=== PATIENT | male | born 1955 | race African-American/Black ===

== ENCOUNTER 2017-10-02 10:00 | Emergency (ER) | payer OTHER, SELFPAY ==
--- NOTE | 2017-10-02 10:22 | EDM.PDOC ---
ED HPI GENERAL MEDICAL PROBLEM - General Chief Complaint: Lower Extremity Injury/Pain Stated Complaint: R ANKLE PAIN Time Seen by Provider: 10/02/17 10:03 Source of Information: Reports: Patient History Limitations: Reports: No Limitations - History of Present Illness INITIAL COMMENTS - FREE TEXT/NARRATIVE: HISTORY AND PHYSICAL: History of present illness: Patient is a 62-year-old male who presents to the emergency room today with complaints of right lateral ankle pain 1 month. He states that approximately one month ago he had "rolled" his ankle and since that time has had increased pain with weightbearing and ambulation. This rolling of the ankle did not result in a fall or hitting his head. Initially he did tell his employer but was unable to follow-up for evaluation of this injury until today. He denies any numbness or tingling to the affected extremity. He is ambulatory and able to bear weight although it does cause some pain. Denies any previous surgeries or injuries to this extremity. Review of systems: As per history of present illness and below otherwise all systems reviewed and negative. Past medical history: As per history of present illness and as reviewed below otherwise noncontributory. Surgical history: As per history of present illness and as reviewed below otherwise noncontributory. Social history: No reported history of drug or alcohol abuse. Family history: As per history of present illness and as reviewed below otherwise noncontributory. Physical exam: General: Nontoxic-appearing 62-year-old -[place] Islander male. Alert and oriented. Well-developed and well-nourished. HEENT: Atraumatic, normocephalic, pupils reactive, negative for conjunctival pallor or scleral icterus, mucous membranes moist, throat clear, neck supple, nontender, trachea midline. Lungs: Clear to auscultation, breath sounds equal bilaterally, chest nontender. Heart: S1S2, regular rate and rhythm. Abdomen: Soft, nondistended, nontender. Pelvis: Stable nontender. Genitourinary: Deferred. Rectal: Deferred. Extremities/Skin: Moves all extremities per self. Ambulatory without difficulty. No achillies tendon involvement. Mild tenderness with palpation over the lateral malleolus. There is no appreciated soft tissue swelling or redness. Good flexion and extension of the affected extremity. Strong pedal pulse. Skin is warm, intact, dry. He is negative for cords or calf pain. Neurovascular unremarkable. Neuro: Awake, alert, oriented. Cranial nerves II through XII unremarkable. Cerebellum unremarkable. Motor and sensory unremarkable throughout. Exam nonfocal. Diagnostics: X-ray right ankle Therapeutics: Stirrup splint Impression: Right ankle pain Plan: 1. Please use the stirrup splint and crutches for comfort. Rest, ice, elevate the affected extremity. 2. May use the diclofenac as needed for pain. This is an anti-inflammatory medications so do not take any additional NSAIDs such as Aleve or ibuprofen. 3. Follow up with an orthopedic provider if you continue to have pain. Return to the ED as needed and as discussed. Definitive disposition and diagnosis as appropriate pending reevaluation and review of above. Duration: Week(s): Location: Reports: Lower Extremity, Right Right Ankle Pain Score (Numeric/FACES): 8 - Related Data Allergies Allergy/AdvReac Type Severity Reaction Status Date / Time No Known Allergies Allergy Verified 04/27/14 12:23 Home Meds: Home Meds Diclofenac Sodium [Voltaren] 50 mg PO BID PRN 10 Days #20 tab.ec 10/02/17 [Rx] Review of Systems - Review of Systems Review Of Systems: ROS reveals no pertinent complaints other than HPI. ED EXAM, GENERAL - Physical Exam Exam: See Below (See dictation) Course - Vital Signs Last Recorded V/S: Last Vital Signs Temp 98.1 F 10/02/17 10:15 Pulse 90 10/02/17 10:15 Resp 18 10/02/17 10:15 BP 136/75 10/02/17 10:15 Pulse Ox 98 10/02/17 10:15 - Orders/Labs/Meds Orders: Active Orders 24 hr Category Date Time Status Ankle Min 3V Rt [CR] Stat Exams 10/02/17 10:26 Taken DME for Discharge [COMM] Stat Oth 10/02/17 12:10 Ordered Departure - Departure Time of Disposition: 10:32 Disposition: Home, Self-Care 01 Clinical Impression: Ankle pain, right Qualifiers: Chronicity: acute Qualified Code(s): M25.571 - Pain in right ankle and joints of right foot - Discharge Information Prescriptions: Diclofenac Sodium [Voltaren] 50 mg PO BID PRN 10 Days #20 tab.ec PRN Reason: Pain Instructions: Ankle Pain Referrals: PCP,None [Primary Care Provider] - Forms: ED Department Discharge Additional Instructions: My general discharge The following information is given to patients seen in the emergency department who are being discharged to home. This information is to outline your options for follow-up care. We provide all patients seen in our emergency department with a follow-up referral. The need for follow-up, as well as the timing and circumstances, are variable depending upon the specifics of your emergency department visit. If you don't have a primary care physician on staff, we will provide you with a referral. We always advise you to contact your personal physician following an emergency department visit to inform them of the circumstance of the visit and for follow-up with them and/or the need for any referrals to a consulting specialist. The emergency department will also refer you to a specialist when appropriate. This referral assures that you have the opportunity for follow-up care with a specialist. All of these measure are taken in an effort to provide you with optimal care, which includes your follow-up. Under all circumstances we always encourage you to contact your private physician who remains a resource for coordinating your care. When calling for follow-up care, please make the office aware that this follow-up is from your recent emergency room visit. If for any reason you are refused follow-up, please contact the [facility] Emergency Department at and asked to speak to the emergency department charge nurse. [facility] [address], [address] [place] [address] 1. Please use the stirrup splint and crutches for comfort. Rest, ice, elevate the affected extremity. 2. May use the diclofenac as needed for pain (Sent electronically to [facility]). This is an anti-inflammatory medications so do not take any additional NSAIDs such as Aleve or ibuprofen. 3. Follow up with an orthopedic provider if you continue to have pain. Return to the ED as needed and as discussed. - My Orders Last 24 Hours: My Active Orders 10/02/17 10:26 Ankle Min 3V Rt [CR] Stat 10/02/17 12:10 DME for Discharge [COMM] Stat - Assessment/Plan Last 24 Hours: My Active Orders 10/02/17 10:26 Ankle Min 3V Rt [CR] Stat 10/02/17 12:10 DME for Discharge [COMM] Stat
--- NOTE | 2017-10-02 13:19 | CR ---
EXAMINATION: Right ankle HISTORY: Pain COMPARISON: None TECHNIQUE: 3 views FINDINGS/IMPRESSION: There is no acute osseous abnormality, dislocation, or fracture. Mild soft tissu e swelling overlying the lateral malleolus. Subtle curvilinear calcification over the posterior tibia l plafond, possibly periosteal reaction or an old injury.
== END 2017-10-02 12:35 | disposition home or self-care (01) ==
LOC: MW.ED 10:00
DX: M25.571 Pain in right ankle and joints of right foot (principal)
CPT/HCPCS: 73610-26-RT; 73610-RT; 99283

== ENCOUNTER 2018-09-11 13:04 | Emergency (ER) | payer BC, SELFPAY ==
--- NOTE | 2018-09-11 13:45 | EDM.PDOC ---
ED HPI GENERAL MEDICAL PROBLEM - General Chief Complaint: ENT Problem Stated Complaint: RUNNING NOSE Time Seen by Provider: 09/11/18 13:18 Source of Information: Reports: Patient History Limitations: Reports: No Limitations - History of Present Illness INITIAL COMMENTS - FREE TEXT/NARRATIVE: HISTORY AND PHYSICAL: History of present illness: Patient is a 63-year-old male who presents to the emergency room with complaints of rhinitis He says that over the past several weeks he has had a continuous runny nose which he describes as "constant". Approx 1 week ago he finished an antibiotic treating a sinus and ear infection. He states that this did not help with his nasal drainage. He denies any history of seasonal allergies although states he never had this problem prior to coming to [place]. He denies any fever, chills, chest pain, shortness of breath or cough. Denies any GI or symptoms. Review of systems: As per history of present illness and below otherwise all systems reviewed and negative. Past medical history: As per history of present illness and as reviewed below otherwise noncontributory. Surgical history: As per history of present illness and as reviewed below otherwise noncontributory. Social history: See social history for further information Family history: As per history of present illness and as reviewed below otherwise noncontributory. Physical exam: General: Well-developed and well-nourished 63-year-old -Finnish male. Alert and oriented. Nontoxic appearing and in no acute distress. HEENT: Atraumatic, normocephalic, pupils equal and reactive bilaterally, negative for conjunctival pallor or scleral icterus, mucous membranes moist, TMs normal bilaterally, throat clear, neck supple, nontender, trachea midline. No sinus tenderness with palpation. No drooling or trismus noted. No meningeal signs. No hot potato voice noted. Lungs: Clear to auscultation, breath sounds equal bilaterally, chest nontender. Heart: S1S2, regular rate and rhythm without overt murmur Abdomen: Soft, nondistended, nontender. Negative for masses or hepatosplenomegaly. Negative for costovertebral tenderness. Pelvis: Stable nontender. Genitourinary: Deferred. Rectal: Deferred. Skin: Intact, warm, dry. No lesions or rashes noted. Extremities: Atraumatic, negative for cords or calf pain. Neurovascular unremarkable. Neuro: Awake, alert, oriented. Cranial nerves II through XII unremarkable. Cerebellum unremarkable. Motor and sensory unremarkable throughout. Exam nonfocal. Notes: Discussed using [id number] allergy medications for his rhinitis. There is a language barrier and he states that he does not understand. We'll give him a prescription for Singulair for his symptoms. He does voice understanding and is agreeable to plan of care. Did provide him with phone numbers to establish care with a primary care provider. He is agreeable denies any further questions. Diagnostics: None Therapeutics: None Prescription: Singulair Impression: Allergic rhinitis Plan: 1. Take the Singulair once daily for your allergic rhinitis (runny nose) 2. Please establish care with a primary care provider, please be reevaluated with in the next week. 3. Return to the ED as needed and as discussed. Definitive disposition and diagnosis as appropriate pending reevaluation and review of above. Duration: Chronic Location: Reports: Face - Related Data Allergies Allergy/AdvReac Type Severity Reaction Status Date / Time No Known Allergies Allergy Verified 09/11/18 13:21 Home Meds: Home Meds . [No Known Home Meds] 09/11/18 [History] Past Medical History - Past Health History Medical/Surgical History: Denies Medical/Surgical History Social & Family History - Family History Family Medical History: Noncontributory - Tobacco Use Smoking Status *Q: Never Smoker - Caffeine Use Caffeine Use: Reports: None - Recreational Drug Use Recreational Drug Use: No ED ROS ENT - Review of Systems Review Of Systems: ROS reveals no pertinent complaints other than HPI. ED EXAM, ENT - Physical Exam Exam: See Below (See dictation) Course - Vital Signs Last Recorded V/S: Last Vital Signs Temp 98.0 F 09/11/18 13:18 Pulse 85 09/11/18 13:18 Resp 18 09/11/18 13:18 BP 132/78 09/11/18 13:18 Pulse Ox 98 09/11/18 13:18 Departure - Departure Time of Disposition: 13:44 Disposition: Home, Self-Care 01 Clinical Impression: Allergic rhinitis Qualifiers: Allergic rhinitis trigger: unspecified Allergic rhinitis seasonality: unspecified Qualified Code(s): J30.9 - Allergic rhinitis, unspecified - Discharge Information Instructions: Allergic Rhinitis, Adult Referrals: PCP,None [Primary Care Provider] - Forms: ED Department Discharge Additional Instructions: The following information is given to patients seen in the emergency department who are being discharged to home. This information is to outline your options for follow-up care. We provide all patients seen in our emergency department with a follow-up referral. The need for follow-up, as well as the timing and circumstances, are variable depending upon the specifics of your emergency department visit. If you don't have a primary care physician on staff, we will provide you with a referral. We always advise you to contact your personal physician following an emergency department visit to inform them of the circumstance of the visit and for follow-up with them and/or the need for any referrals to a consulting specialist. The emergency department will also refer you to a specialist when appropriate. This referral assures that you have the opportunity for follow-up care with a specialist. All of these measure are taken in an effort to provide you with optimal care, which includes your follow-up. Under all circumstances we always encourage you to contact your private physician who remains a resource for coordinating your care. When calling for follow-up care, please make the office aware that this follow-up is from your recent emergency room visit. If for any reason you are refused follow-up, please contact the [facility] Emergency Department at and asked to speak to the emergency department charge nurse. [facility] [address] [place] [address] [place] [address] 1. Take the Singulair once daily for your allergic rhinitis (runny nose) 2. Please establish care with a primary care provider, please be reevaluated with in the next week. 3. Return to the ED as needed and as discussed.
== END 2018-09-11 14:09 | disposition home or self-care (01) ==
LOC: MW.ED 13:04
DX: J30.9 Allergic rhinitis, unspecified (principal)
CPT/HCPCS: 99283

== ENCOUNTER 2019-11-01 18:34 | Emergency (ER) | payer OTHER, SELFPAY ==
[2019-11-01] MEDS ORDERED: Iopamidol 755 Mg/ML 100 ML Bottle IVPUSH STA (18:40)
[2019-11-01] MEDS ORDERED: HYDROmorphone 1 MG/ML Syringe IVPUSH ONE (19:22)
--- NOTE | 2019-11-01 19:36 | CT ---
CT abdomen and pelvis Technique: Multiple axial sections were obtained from above the dome of the diaphragm inferiorly through the pubic symphysis. Intravenous contrast was utilized. No oral contrast has been given. Findings: Visualized lung bases show nothing acute. Liver shows no focal parenchymal abnormality. Spleen appears within normal limits. Adrenal glands show no nodule. Pancreas appears within normal limits. Gallbladder contains no calcified gallstones. Kidneys show symmetric contrast enhancement. Small cyst is noted within the mid right kidney measuring 1 cm in size. No additional abnormality is seen within the kidneys. Aorta shows no aneurysm. Atherosclerotic calcification is seen within the iliac arteries. No retroperitoneal adenopathy is seen. No pelvic mass or adenopathy is seen. No free fluid or inflammatory change is seen. Bone window settings were reviewed which shows degenerative change within the apophyseal joints of L3-L4 and L4-L5 and lesser at L5-S1. Disc space narrowing and vacuum phenomena is seen within the L5-S1 disc. No acute osseous finding is seen. Impression: 1. Nonacute findings as described above. 2. Nothing acute is seen on CT study of the abdomen and pelvis. Diagnostic code #2 Study was dictated in MDT
--- NOTE | 2019-11-01 19:36 | CT ---
CT cervical spine Technique: Multiple axial sections were obtained from above C1 inferiorly to the top of T3. Reconstructed coronal and sagittal images were obtained. Findings: Retention cyst is noted within the inferior right maxillary sinus measuring about 2.1 cm. Nodular mucosal thickening or additional broad-based retention cyst is seen within the left maxillary sinus. Mild degenerative change is noted between the dens and anterior arch C1. Mild disc space narrowing noted at C3-C4. Moderate disc space narrowing is noted at C5-C6 and mild disc space narrowing is noted at C6-C7. Detached osteophytes are noted anteriorly at C4-C5 and C6-C7. Anterior osteophytes are noted at C5-C6. Posterior spurring is noted off the C4, C5 and C6. No bony central or neural foraminal stenosis is seen. No fracture or abnormal subluxation is seen. Impression: 1. Degenerative change as noted above. 2. No acute abnormality is appreciated on CT study of the cervical spine. 3. Sinus findings which are likely chronic as noted above. Diagnostic code #2 Study was dictated in MDT
--- NOTE | 2019-11-01 19:41 | CT ---
CT chest Technique: Multiple axial sections were obtained from above the lung apices inferiorly through the lung bases. Intravenous contrast was utilized. Comparison: No prior chest imaging is available. Findings: Aorta shows no abnormality. Mediastinum shows no hematoma. No adenopathy is seen. No pericardial thickening is seen. Lungs are clear. No pulmonary contusion is seen. No pleural effusions are noted. Minimal scarring is seen within the left base. Bone window settings were reviewed no discrete rib abnormality is appreciated. Slight degenerative change is noted within the spine. Spine shows no acute compression deformities or abnormal subluxation. Impression: 1. Nothing acute is appreciated on CT study of the chest. Diagnostic code #2 Study was dictated in MDT
--- NOTE | 2019-11-01 20:06 | EDM.PDOC ---
ED HPI GENERAL MEDICAL PROBLEM - General Chief Complaint: Trauma Stated Complaint: WORK HEAD INJURY Time Seen by Provider: 11/01/19 18:57 Source of Information: Reports: Patient History Limitations: Reports: No Limitations - History of Present Illness INITIAL COMMENTS - FREE TEXT/NARRATIVE: HISTORY OF PRESENT ILLNESS: Patient is a 64-year-old male who presents the ED status post injury to his left lower rib/flank area. 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 Reports pain , 9 out of 10 in severity, worse with movement and pressure. Denies any retrosternal chest pain or dyspnea. States the injury marvel him and now complains of pain to the left side of his neck in the muscular area of his lateral back. Denies any head trauma or loss of consciousness. No extremity injury. No weakness or paresthesias. Patient is not on anticoagulants. REVIEW OF SYSTEMS: Other than the symptoms associated with the present events, the following is reported with regard to recent health: General: (-) fever. HENT: (-) congestion. Respiratory: (-) cough. Cardiovascular: (+) lateral lower chest wall pain. GI: (+)lateral flank abdominal pain. : (-) urinary complaints. Musculoskeletal: (-) other aches or pains. Endocrine: (-) generalized weakness. Neurological: (-) localized weakness. Skin: (-) rash PAST MEDICAL HISTORY: reviewed as per nursing notes SOCIAL HISTORY: reviewed as per nursing notes, MEDICATIONS: Per nurse's note ALLERGIES: Per nurse's note, reviewed by me PHYSICAL EXAMINATION: GENERALIZED APPEARANCE: well developed, well nourished in mild to moderate distress VITAL SIGNS: Per nurse's note, reviewed by me SKIN: Warm, dry; (-) cyanosis; (-) rash. HEAD: (-) scalp swelling, (-) tenderness. EYES: (-) conjunctival pallor, (-) scleral icterus. ENMT: (-) stridor; mucous membranes moist. NECK: (+)left paracervical tenderness, (-) stiffness, (-) midline tenderness, step off or deformity CHEST AND RESPIRATORY: (-) rales, (-) rhonchi, (-) wheezes; breath sounds equal bilaterally. left lateral lower chest wall tenderness. no crepitus HEART AND CARDIOVASCULAR: (-) irregularity; (-) murmur, (-) gallop. ABDOMEN AND GI: Soft; (+)left upper flank tenderness, (-) guarding, (-) rebound, (-) palpable masses, (-) CVAT EXTREMITIES: (-) deformity, (-) edema. NEURO AND PSYCH: Alert. Cranial nerves grossly intact; strength symmetric. gait steady. sensation intact. 5/5+ strength DIAGNOSTICS: CT c-spine: as per by radiologist report, reviewed by myself CT chest: as per by radiologist report, reviewed by myself CT abd/pelvis: as per by radiologist report, reviewed by myself EMERGENCY DEPARTMENT COURSE AND TREATMENT: Patient's condition remained stable during Emergency Department evaluation. Based on history, physical exam, and diagnostic evaluation, the patient appears to have symptoms consistent with a contusion. There was some suspicion for fracture or possible internal injury, however imaging was negative. The patient appears otherwise well without obvious other injury. NVI. Ambulating in ED. I recommended rest, ice, and pain medication when necessary. If the pain is not improving after 72 hours I recommended a follow-up appointment for repeat examination and possible further imaging. PLAN AND FOLLOW-UP: Patient received written and verbal instructions regarding this condition. Return to ED immediately with any new or worsening symptoms. Follow up to be arranged by patient with pcp in 1-2 days for further evaluation. Given discharge precautions. Patient expressed verbal understanding. head Pain Score (Numeric/FACES): 9 - Related Data Allergies Allergy/AdvReac Type Severity Reaction Status Date / Time No Known Allergies Allergy Verified 11/01/19 18:43 Home Meds: Home Meds . [No Known Home Meds] 09/11/18 [History] Past Medical History - Past Health History Medical/Surgical History: Denies Medical/Surgical History Social & Family History - Family History Family Medical History: Noncontributory - Caffeine Use Caffeine Use: Reports: None Review of Systems - Review of Systems Review Of Systems: See Below (see dictation) ED EXAM, GENERAL - Physical Exam Exam: See Below (see dictation) Course - Vital Signs Last Recorded V/S: Last Vital Signs Temp 98.5 F 11/01/19 18:38 Pulse 97 11/01/19 18:38 Resp 16 03/16/20 18:38 BP 167/107 H 11/01/19 18:38 Pulse Ox 98 11/01/19 18:38 - Orders/Labs/Meds Orders: Active Orders 24 hr Category Date Time Status EKG 12 Lead [EKG Documentation Completion] [RC] STAT Care 11/01/19 19:38 Active Meds: Medications Discontinued Medications Generic Name Dose Route Start Last Admin Trade Name [place] PRN Reason Stop Dose Admin Hydromorphone HCl 1 mg 11/01/19 19:22 11/01/19 19:29 Dilaudid IVPUSH 11/01/19 19:23 1 mg ONETIME ONE Administration Iopamidol 100 ml 11/01/19 18:40 11/01/19 19:09 Isovue-370 (76%) IVPUSH 11/01/19 18:41 100 ml ONETIME STA Administration Departure - Departure Time of Disposition: 20:05 Disposition: Home, Self-Care 01 Condition: Good Clinical Impression: Contusion - Discharge Information *PRESCRIPTION DRUG MONITORING PROGRAM REVIEWED*: Not Applicable *COPY OF PRESCRIPTION DRUG MONITORING REPORT IN PATIENT SUZE: Not Applicable Instructions: Contusion Forms: ED Department Discharge Additional Instructions: The following information is given to patients seen in the emergency department who are being discharged to home. This information is to outline your options for follow-up care. We provide all patients seen in our emergency department with a follow-up referral. The need for follow-up, as well as the timing and circumstances, are variable depending upon the specifics of your emergency department visit. If you don't have a primary care physician on staff, we will provide you with a referral. We always advise you to contact your personal physician following an emergency department visit to inform them of the circumstance of the visit and for follow-up with them and/or the need for any referrals to a consulting specialist. The emergency department will also refer you to a specialist when appropriate. This referral assures that you have the opportunity for follow-up care with a specialist. All of these measure are taken in an effort to provide you with optimal care, which includes your follow-up. Under all circumstances we always encourage you to contact your private physician who remains a resource for coordinating your care. When calling for follow-up care, please make the office aware that this follow-up is from your recent emergency room visit. If for any reason you are refused follow-up, please contact the [facility] Emergency Department at and asked to speak to the emergency department charge nurse. Sepsis Event Note - Evaluation Sepsis Screening Result: No Definite Risk - Focused Exam Vital Signs: Vital Signs Temp Pulse Resp BP Pulse Ox 11/01/19 18:38 98.5 F 97 16 167/107 H 98 Date Exam was Performed: 11/01/19 Time Exam was Performed: 20:09
== END 2019-11-01 20:10 | disposition home or self-care (01) ==
LOC: MW.ED 18:34
DX: S20.212A Contusion of left front wall of thorax, initial encounter (principal); W22.8XXA Striking against or struck by other objects, initial encounter; Y99.0 Civilian activity done for income or pay
CPT/HCPCS: 71260; 72125; 74177; 93005; 96374; 99283; J1170; Q9967; 99284